=== PATIENT | male | born 1970 ===

== ENCOUNTER 2020-11-04 14:19 | Outpatient (REF) | payer OTHER, SELFPAY ==
--- NOTE | 2020-11-04 14:24 | CT_ITS ---
EXAMINATION: CT HEAD WITHOUT CONTRAST CLINICAL INFORMATION: Chronic tension headaches. COMPARISON: None TECHNIQUE: Contiguous axial imaging was performed from the skull base to vertex without intravenous administration of contrast. This CT examination was performed using dose optimization techniques as appropriate, variously including the following: *Automated exposure control *Adjustment of mA and/or kV according to patient size (this includes techniques or standardized protocols for targeted exams where dose is matched to indication/reason for exam; i.e. extremities or head) *Use of iterative reconstruction technique DLP: 912 mGy-cm FINDINGS: There is no acute intra-axial, extra-axial bleed, masses, collection midline shift. There is old infarct in the left watershed area/parieto-occipital region. There is no acute infarct in evolution. Merchant to white matter differentiation is well preserved. No extra-axial fluid collections are identified. The ventricles are normal in size. There is no abnormal attenuation within the brain parenchyma. The osseous structures and soft tissues are normal. The mastoid air cells and visualized portions of the paranasal sinuses are well aerated. CT/CT head/brain wo con IMPRESSION: No acute intracranial process seen. 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
== END 2020-11-04 14:20 | disposition home or self-care (01) ==
LOC: HO.CT 14:19
PROVIDERS: PCP Internal Medicine; Visit Provider Psychiatry & Neurology Neurology
DX: G44.229 Chronic tension-type headache, not intractable (principal)
CPT/HCPCS: 70450

== ENCOUNTER 2020-12-19 09:37 | Outpatient (REF) | payer OTHER, SELFPAY ==
--- NOTE | ~2020-12-19 | US_ITS ---
EXAMINATION: US EXTRACRANIAL CAROTID DUPLEX, BILATERAL CLINICAL INFORMATION: This is a 50 year old male with a stroke. COMPARISON: None TECHNIQUE: Real-time ultrasound and Doppler techniques (integrating B-mode 2-D vascular images, Doppler spectral analysis and color-flow Doppler imaging) were utilized to interrogate the extracranial carotid arteries, the vertebral arteries and proximal subclavian arteries bilaterally. The degree of stenosis is determined by criteria similar to NASCET. FINDINGS: Right Side: 1. There is no atherosclerotic plaque seen in the bifurcation/proximal ICA region. 2. The common carotid artery PSV proximally is 141 cm/s and distally 120 cm/s. 3. The proximal internal carotid artery velocities are 85 cm/s systolic and 21 cm/s diastolic. 4. The proximal external carotid artery PSV is 141 cm/s. 5. The vertebral artery shows antegrade flow. 6. The subclavian artery waveforms are normal. Left Side: 1. There is no atherosclerotic plaque seen in the bifurcation/proximal ICA region. 2. The common carotid artery PSV proximally is 162 cm/s and distally 110 cm/s. 3. The proximal internal carotid artery velocities are 69 cm/s systolic and 15 cm/s diastolic. 4. The proximal external carotid artery PSV is 134 cm/s. 5. The vertebral artery shows antegrade flow. 6. The subclavian artery waveforms are normal. US/US carotid duplex BI IMPRESSION: 1. RIGHT: Normal right internal carotid artery without atherosclerotic plaque or hemodynamically significant stenosis. 2. LEFT: Normal left internal carotid artery without atherosclerotic plaque or hemodynamically significant stenosis.
== END 2020-12-19 09:38 | disposition home or self-care (01) ==
LOC: HO.US 09:37
PROVIDERS: PCP Internal Medicine; Visit Provider Psychiatry & Neurology Neurology
DX: I63.9 Cerebral infarction, unspecified (principal)
CPT/HCPCS: 93880

== ENCOUNTER 2021-10-04 21:56 | Emergency (ER) | payer OTHER, SELFPAY ==
[2021-10-04 22:16] VITALS: BP 122/80; PULSE 76; RESP 18; TEMP 37.1; O2SAT 97; BMI 30.5
--- NOTE | 2021-10-05 00:28 | ED_ITS ---
History of Present Illness General Chief Complaint: Epistaxis Stated Complaint: Bloody Nose/Headache Time Seen by Provider: 10/04/21 23:51 Source: patient and hourly sign language interpreter Mode of arrival: EMS History of Present Illness HPI Narrative: 50-year-old male who is COVID-19 vaccinated presents with acute onset of epistaxis from the right nostril after having recent, several days of sinus pressure and headache and patient is noted to be on CPAP machine and endorse that he did contact his physician yesterday regarding having multiple warnings of waking up with a dry mouth. Otherwise, he denies any fevers, chills, shortness of breath, chest pain/palpitations. Patient denies any further nose bleed at this time but was concerned and called the ambulance. He denies any history either personal or family of bleeding disorders and denies any use of blood thinners at this time. Related Data Allergies Allergy/AdvReac Type Severity Reaction Status Date / Time nabumetone [From RELAFEN] Allergy Unknown UNKNOWN Verified 10/04/21 22:22 lidocaine [From LidoPatch] AdvReac Rash Verified 10/04/21 22:22 menthol [From LidoPatch] AdvReac Rash Verified 10/04/21 22:22 Review of Systems Review of Systems: Pertinent positives and negatives as stated in HPI 10 point review of systems is otherwise negative. [facility] Past Medical History Source: nursing notes reviewed Social History Social History Advance Directives: No Advance Directives Information Provided: No Physical Exam Vital Signs: Vital Signs: Last Vital Signs Temp 98.7 F 10/04/21 22:16 Pulse 76 10/04/21 22:16 Resp 18 10/04/21 22:16 BP 122/80 10/04/21 22:16 Pulse Ox 97 10/04/21 22:16 BMI result Body Mass Index 30.5 VITAL SIGNS: Reviewed. GENERAL: Well developed, well nourished, in no acute distress. HEAD: Normocephalic/atraumatic EYES: PERRLA, EOMI EARS: Ext canals without abnormality, TMs non-bulging and non-erythematous NOSE: Nares patent bilateral, evidence of bleeding from the right nostril but h emostatic at present OROPHARYNX: no oral lesions noted, posterior pharynx clear and non-erythematous without noted tonsillar enlargement/erythema/exudates NECK: Supple, no adenopathy LUNGS: Normal breath sounds. No adventitious sounds or accessory muscle use. SpO2<97> CARDIOVASCULAR: Regular rate and rhythm without noted murmurs ABDOMEN: Soft, non-tender, non-distended with bowel sounds NEUROLOGIC: Alert and oriented x 4. Strength and sensation to light touch were grossly intact x 4. Discharge Plan Discharge Clinical Impression: Epistaxis Patient Disposition: Home, Self-Care Instructions: Nosebleed (ED) Additional Instructions: 1. Llame a street m?dico ma?bogdan y analice la posibilidad de aumentar la humedad dentro de street m?quina CPAP. 2. Recomiende un aerosol de soluci?n salina de venta janelle y ?selo seg?n las instrucciones dentro de cada fosa nasal para reducir la probabilidad de que max m?s por la nariz. 3. Nikolas un seguimiento con street proveedor de atenci?n primaria en los pr?ximos 1-2 d?as para davide reevaluaci?n. Regrese a la augie de emergencias si los s?ntomas empeoran. Print Language: Ukrainian
[2021-10-05] MEDS: Acetaminophen 325 MG TABLET 975 MG PO (00:50)
== END 2021-10-05 00:52 | disposition home or self-care (01) ==
PROVIDERS: Emergency Provider Student in an Organized Health Care Education/Training Program
DX: R04.0 Epistaxis (principal)
CPT/HCPCS: 99283

== ENCOUNTER 2022-07-05 10:29 | Emergency (ER) | payer OTHER, SELFPAY ==
--- NOTE | ~2022-07-05 | XR_ITS ---
EXAMINATION: XR HAND, LEFT CLINICAL INFORMATION: Pain COMPARISON: None TECHNIQUE: PA, lateral, and oblique views of the left hand. FINDINGS: The bones and soft tissues are normal. No fracture. Alignment is anatomic. Joint spaces are maintained. No erosions or soft tissue calcifications. XR/XR hand LT 2V IMPRESSION: Normal left hand.
[2022-07-05 11:03] VITALS: BP 114/74; PULSE 72; RESP 18; TEMP 36.6; O2SAT 97; BMI 30.1
--- NOTE | 2022-07-05 11:30 | ED_ITS ---
HPI - General Adult General Chief complaint: Wound/Laceration Stated complaint: Finger Injury 07/05/22 Time Seen by Provider: 07/05/22 11:30 Source: patient Mode of arrival: ambulatory History of Present Illness HPI narrative: 51-year-old male with no significant past medical history presenting to the ED complaining of left 3rd digit crush injury S/P heavy window slamming shut on it around 23:00 last night. Reports associated tingling. Tetanus unknown. States area is throbbing. Denies injury to other area Onset (ago): hour(s) Related Data Allergies Allergy/AdvReac Type Severity Reaction Status Date / Time nabumetone [From RELAFEN] Allergy Unknown UNKNOWN Verified 10/04/21 22:22 clonidine Allergy Hives Verified 07/05/22 11:07 lidocaine [From LidoPatch] AdvReac Rash Verified 10/04/21 22:22 menthol [From LidoPatch] AdvReac Rash Verified 10/04/21 22:22 Review of Systems Review of Systems: Constitutional: No Fever, No Chills ENT/Mouth: No Ear Pain, No Nasal Congestion, No sore throat, No Rhinorrhea, No Swallowing Difficulty Cardiovascular: No Chest Pain, No SOB Respiratory: No Cough, No Sputum, No Wheezing Gastrointestinal: No Nausea, No Vomiting, No Diarrhea, No Constipation, No Abdominal pain Genitourinary: No Dysuria, No Urinary Frequency, No Hematuria Musculoskeletal: + joint pain, No Myalgias, + Joint Swelling Skin: + Skin Lesions, No rash Neuro: No Weakness, No Numbness, + Paresthesias Yes all other systems are rev iewed and are negative Constitutional: Constitutional: Reports as per HPI Neurologic: Denies Sensory deficit (Neuro) [facility] Past Medical History Attestation statement: The following information was validated with the patient. Social History Social History Advance Directives: No Advance Directives Information Provided: No Physical Exam ED Vital Signs: Vital Signs - 24 hr 07/05/22 11:03 Temperature 97.8 F Pulse Rate 72 Respiratory Rate 18 Blood Pressure 114/74 Pulse Oximetry 97 Oxygen Delivery Method Room Air BMI result Body Mass Index 30.1 Const General: cooperative, healthy appearing and no acute distress Orientation/consciousness: patient oriented x3 Limitations: no limitations HENMT Head: Yes normal to inspection and Yes atraumatic Ears: hearing grossly normal bilaterally General nose exam: Normal external nose present Face and sinus: Yes normal facial exam Eyes General: appearance normal, both eyes and all related structures EOM: EOMs intact bilaterally Neck Neck: Yes normal visual inspection and Yes no meningeal signs Resp Effort & Inspection: normal respiratory effort and no respiratory distress Cardio Rate: regular rate Heart sounds: S1 normal heart sound present and S2 normal heart sound present Peripheral pulses: radial pulses present and ulnar radial pulses present Skin Rashes: no rashes Neuro General: patient oriented x3, tone normal and no meningeal signs Gait exam (Neuro): Normal gait present Sensory Exam: No Sensory deficit (Neuro) Extrem Other: Please refer to image above of left 3rd digit. Noted subungual hematoma with small superficial laceration just proximal to cuticle. No visible nail bed, nail bed intact. +ttp to DIP. FROM and sensation intact to light touch to all digits Course Course Course Narrative: XR hand LT 2V IMPRESSION: Normal left hand. > nail trephination performed with success Results discussed with patient including worrisome signs and symptoms and strict return precautions, and when to return to the emergency department. They verbalized understanding and feel safe for discharge at this time. Procedures Nail Trephination Location (finger): left and middle Method of drainage: nail cautery Procedure successful: Yes Patient tolerated procedure: No Complications Medical Decision Making MDM Narrative Medical decision making narrative: 51-year-old male with no significant past medical history presenting to the ED complaining of left 3rd digit crush injury S/P heavy window slamming shut on it around 23:00 last night. On exam vital signs stable, NAD, nontoxic appearing, please refer to imaging above. Concern for fracture. Plan: X-rays, update tetanus, nail trephination Medical Records Medical records reviewed: Yes I reviewed the patient's medical records. Lab Data Lab results reviewed: Yes I reviewed the patient's lab results. Discharge Plan Discharge Clinical Impression: Subungual hematoma of finger, Superficial laceration, Crush injury Patient Disposition: Home, Self-Care Instructions: Subungual Hematoma (ED), Crush Injury (ED) Additional Instructions: Warm soaks to your finger will help draw the blood out from underneath your nail If pain becomes unbearable, area begins to look infected, is red, there is drainage, you have fever, or decreased range of motion return to the emergency department Los ba?os tibios en el dedo ayudar?n a sacar la max de debajo de la u?a. Si el dolor se vuelve insoportable, el ?ana comienza a verse infectada, est? daisha, hay drenaje, tiene fiebre o disminuci?n del rango de movimiento, regrese al departamento de emergencias. Referrals: Physician,Unknown J [Physician] - Print Language: [place] Islander
[2022-07-05] MEDS: Diphth,Pertus(ACell),Tet Adult 0.5 ML SYRINGE IM (12:02)
== END 2022-07-05 13:29 | disposition home or self-care (01) ==
PROVIDERS: Emergency Provider Emergency Medicine; PCP Internal Medicine
DX: S61.313A Laceration without foreign body of left middle finger with damage to nail, initial encounter (principal); S60.512A Abrasion of left hand, initial encounter; M79.642 Pain in left hand; Y29.XXXA Contact with blunt object, undetermined intent, initial encounter; Y93.9 Activity, unspecified; Y92.9 Unspecified place or not applicable; Y99.9 Unspecified external cause status; Z79.899 Other long term (current) drug therapy
CPT/HCPCS: 11750; 73120; 90471; 90715; 99282; 99284

== ENCOUNTER 2023-02-17 11:03 | Emergency (ER) | payer OTHER, SELFPAY ==
--- NOTE | ~2023-02-17 | XR_ITS ---
EXAMINATION: XR CHEST CLINICAL INFORMATION: Productive cough, shortness of breath COMPARISON: None available. TECHNIQUE: Frontal view of the chest was obtained. FINDINGS: No significant abnormality is noted involving the heart, lungs, mediastinum, bony thorax or soft tissues. CTA chest on 04/30/2017. Partially visualized spinal stimulator. XR/XR chest 1V IMPRESSION: No acute disease.
--- NOTE | 2023-02-17 11:05 | ED.URI ---
HPI - URI/Sore Throat General Chief Complaint: Upper Respiratory Symptoms Stated Complaint: congested Time Seen by Provider: 02/17/23 11:47 Source: patient, RN notes reviewed and old records reviewed Mode of arrival: ambulatory History of Present Illness HPI Narrative: 52-year-old male with no significant past medical history presenting to the ED complaining of productive cough, nasal congestion, rhinorrhea, sinus pressure, mild SOB, and blocked ears x 2 weeks. Denies reported fever/chills, CP, abdominal pain, recent travel, sick contacts MD elicited complaint: cough, rhinorrhea and nasal congestion Onset (ago): week(s) Related Data Previous Rx's Medication Instructions Recorded amoxicillin 875 mg tablet 875 mg PO BID 7 days #14 tabs 02/17/23 fluticasone propionate 50 2 spray intranasal DAILY #16 grams 02/17/23 mcg/actuation nasal spray,suspension (Flonase Allergy Relief) prednisone 20 mg tablet 40 mg PO DAILY 5 days #10 tabs 02/17/23 Allergies Allergy/AdvReac Type Severity Reaction Status Date / Time nabumetone [From RELAFEN] Allergy Unknown UNKNOWN Verified 02/17/23 11:08 clonidine Allergy Hives Verified 02/17/23 11:08 lidocaine [From LidoPatch] AdvReac Rash Verified 02/17/23 11:08 menthol [From LidoPatch] AdvReac Rash Verified 02/17/23 11:08 Review of Systems Review of Systems: Constitutional: No Fever, No Chills ENT/Mouth: + Ear Pain, +Nasal Congestion, + Sinus Pain, No Hoarseness, No sore throat, +Rhinorrhea, No Swallowing Difficulty Cardiovascular: No Chest Pain, + SOB Respiratory: +cough, + Sputum, No Wheezing Gastrointestinal: No Nausea, No Vomiting, No Diarrhea, No Constipation, No Abdominal pain Musculoskeletal: No joint pain, No Myalgias, No Joint Swelling Skin: No Skin Lesions, No rash Neuro: No Weakness Yes all other systems are reviewed and are negative Constitutional: Constitutional: Reports as per [facility] Past Medical History Attestation statement: The following information was validated with the patient. Source: old records reviewed Social History Social History Advance Directives: No Advance Directives Information Provided: Yes Physical Exam Vital Signs: Vital Signs: Last Vital Signs Temp 98 F 02/17/23 11:08 Pulse 88 02/17/23 11:08 Resp 19 02/17/23 11:08 BP 110/78 02/17/23 11:08 Pulse Ox 99 02/17/23 11:08 O2 Del Method Room Air 02/17/23 11:08 BMI result Body Mass Index 31.1 Const: General: cooperative, healthy appearing, no acute distress, alert and awake Orientation/consciousness: patient oriented x3 Limitations: no limitations HEENT: Head: Yes normal to inspection and Yes atraumatic Ears: hearing grossly normal bilaterally, external ears normal and TM abnormal with fluid behind the TM on the right; not bulging, not dull and not erythematous General nose exam: Normal external nose present and Nasal discharge present Face and sinus: Yes normal facial exam Mouth: Normal oral and palatal mucosa present Throat: Yes posterior oropharynx normal, Yes tonsils normal, Yes uvula midline, No peritonsillar mass, No uvula laterally displaced and No uvular edema Eyes: General: appearance normal, both eyes and all related structures EOM: EOMs intact bilaterally Neck: Neck: Yes normal visual inspection and Yes no meningeal signs Resp: Effort & Inspection: normal respiratory effort and no respiratory distress Auscultation: clear to auscultation bilaterally, no rhonchi and no wheezes Cardio: Rate: regular rate Heart sounds: S1 normal heart sound present and S2 normal heart sound present Skin: Rashes: no rashes Wounds: no wounds Neuro: General: patient oriented x3, tone normal and no meningeal signs Gait exam (Neuro): Normal gait present Extrem: General: Yes normal to inspection Course Course Course Narrative: RME: 52 yo M w/no sig PMHx c/o productive cough, nasal congestion, blocked ears, and mild SOB x2 weeks. Denies CP afebrile, nontoxic COVID/FLU, CXR ordered Full HPI, ROS and PE to be performed by primary ED provider. -COVID and influenza negative XR chest 1V IMPRESSION: No acute disease. Will discharge patient with course of amoxicillin for sinusitis and prednisone for bronchitis Results discussed with patient including worrisome signs and symptoms and strict return precautions, and when to return to the emergency department. They verbalized understanding and feel safe for discharge at this time. Medical Decision Making Medical Decision Making MDM Narrative: 52-year-old male with no significant past medical history presenting to the ED complaining of productive cough, nasal congestion, rhinorrhea, sinus pressure, mild SOB, and blocked ears x 2 weeks. On exam vital signs stable, NAD, nontoxic appearing, right ear with fluid behind TM, no appreciable erythema/bulging, oropharynx WNL, + nasal congestion noted. Lungs CTA. Concern for sinusitis vs viral syndrome vs bronchitis. Lower suspicion for pneumonia, acute otitis media/externa or [employer] Plan: COVID/flu testing, CXR Please refer to course for remaining clinical decision making, interpretation of labs/imaging results, and discussions with consultants and/or family members. Differential Diagnosis Differential Diagnoses: The differential diagnosis associated with the presentation includes As above Lab Data MDM Lab Attestation statement: I reviewed the patient's lab results. Labs: Lab Results 02/17/23 02/17/23 Range/Units 11:25 11:25 COVID-19 (JAYY) Negative (Negative) COVID-19 Clin Com See Note Influenza Type A (SUSAN) Negative (Negative) Influenza Type B (SUSAN) Negative (Negative) Influenza A & B Note See Note Independent Interpretation I performed an independent interpretation of an: Plain X-Ray Radiology Impression Discussion of test interpretation with radiology: I have reviewed the radiologist's reading. External Record Review External record reviewed: Inpatient record, Office record, Outpatient record, Prior outpatient labs, Prior outpatient radiology, Primary care record and Outside ED record Tests considered The following testing was considered but not selected: As above Discharge Plan Discharge Clinical Impression: Sinusitis, Bronchitis Patient Disposition: Home, Self-Care Instructions: Sinusitis (ED), Acute Bronchitis (ED) Additional Instructions: You tested negative for COVID and flu. your x-ray is unremarkable We are treating you for sinusitis and bronchitis Amoxicillin is an antibiotic please take as prescribed In addition take prednisone which is a steroid Continue using Flonase Follow-up with her doctor If symptoms persist or worsen return to the ED Sergei negativo para COVID y gripe. street radiograf?a no tiene nada especial Te estamos tratando de sinusitis y bronquitis La amoxicilina es un antibi?nieves, t?martin seg?n lo prescrito. Adem?s tome prednisona que es un esteroide Contin?e usando Flonase Seguimiento con street m?dico Si los s?ntomas persisten o empeoran, regrese al servicio de urgencias. Prescriptions: New amoxicillin 875 mg tablet 875 mg PO BID 7 Days Qty: 14 0RF prednisone 20 mg tablet 40 mg PO DAILY 5 Days Qty: 10 0RF fluticasone propionate [Flonase Allergy Relief] 50 mcg/actuation spray,suspension 2 spray intranasal DAILY Qty: 16 0RF Rx Instructions: administer into each nostril Referrals: Cody Yo III, MD [Primary Care Provider] - Interventions: ED Discharge Assessment Last Done: 02/17/23 13:37 Discharge Date/Time: 02/17/23 13:38 Print Language: Maldivian
[2023-02-17 11:08] VITALS: BP 110/78; PULSE 88; RESP 19; TEMP 36.6; O2SAT 99; BMI 31.1
[2023-02-17 11:52] LABS: COVID-19 Test Negative (Negative); IDNOW Serial# 08D9AD1C; IDNOW Serial# BCCEAD1C; Influenza A Negative (Negative); Influenza B2 Negative (Negative)
== END 2023-02-17 13:38 | disposition home or self-care (01) ==
PROVIDERS: Physician Assistant; Emergency Provider Emergency Medicine; PCP Internal Medicine
DX: J32.9 Chronic sinusitis, unspecified (principal); J40 Bronchitis, not specified as acute or chronic; Z20.822 Contact with and (suspected) exposure to COVID-19; Z20.828 Contact with and (suspected) exposure to other viral communicable diseases
CPT/HCPCS: 71045; 87502; 87635; 99283

== ENCOUNTER 2023-05-01 16:20 | Emergency (ER) | payer OTHER, SELFPAY ==
--- NOTE | ~2023-05-01 | XR_ITS ---
EXAMINATION: XR KNEE, RIGHT CLINICAL INFORMATION: Foreign body in the knee. COMPARISON: None available. TECHNIQUE: Four views of the right knee. FINDINGS: No acute fractures or subluxation. Mild tricompartmental degenerative osteoarthritis. No erosions or chondrocalcinosis. Small joint effusion. There is a metallic foreign body projecting over the soft tissues of the medial and anterior compartment of the knee, resembling a fishhook. XR/XR knee RT 3V IMPRESSION: 1. No acute fractures or subluxation. 2. Metallic foreign body in the soft tissues of the knee. 3. Small joint effusion. 4. Mild tricompartmental degenerative osteoarthritis.
[2023-05-01 16:53] VITALS: BP 140/107; PULSE 90; RESP 18; TEMP 36.3; O2SAT 99; BMI 30.4
--- NOTE | 2023-05-01 17:19 | ED_ITS ---
HPI - General Adult General Chief complaint: General Medical Stated complaint: fishing hook in R knee Time Seen by Provider: 05/01/23 17:19 Source: patient and configurator Mode of arrival: ambulatory Limitations: no limitations History of Present Illness HPI narrative: 52-year-old male presents to the ER for evaluation after he got a fishhook stuck in his right knee about 2 hours ago. He states it was a fishhook that had 3 hooks at the end but he was able to cut off 2 of the other hooks. One of the hooks remains imbedded into the soft tissue of his right knee. He was unable to get it out on his own. He states his last tetanus shot was this year. He denies any other injuries. He is ambulatory. MD complaint: [place] imbedded into the right knee Onset (ago): hour(s) Location: right and lower extremity Radiation: non-radiation Severity: moderate Quality: aching Pain Consistency: constant Relieving factors: rest Exacerbating factors: movement Associated symptoms: denies other symptoms Treatments prior to arrival: none Related Data Previous Rx's Medication Instructions Recorded amoxicillin 875 mg tablet 875 mg PO BID 7 days #14 tabs 02/17/23 fluticasone propionate 50 2 spray intranasal DAILY #16 grams 02/17/23 mcg/actuation nasal spray,suspension (Flonase Allergy Relief) prednisone 20 mg tablet 40 mg PO DAILY 5 days #10 tabs 02/17/23 levofloxacin 500 mg tablet 500 mg PO DAILY 5 days #5 tabs 05/01/23 Allergies Allergy/AdvReac Type Severity Reaction Status Date / Time nabumetone [From RELAFEN] Allergy Unknown UNKNOWN Verified 05/01/23 16:52 clonidine Allergy Hives Verified 05/01/23 16:52 lidocaine [From LidoPatch] AdvReac Rash Verified 05/01/23 16:52 menthol [From LidoPatch] AdvReac Rash Verified 05/01/23 16:52 Review of Systems Review of Systems: Yes all other systems are reviewed and are negative [facility] Social History Social History Advance Directives: No Advance Directives Information Provided: Yes Physical Exam ED Vital Signs: Vital Signs - 24 hr 05/01/23 16:53 Temperature 97.3 F Pulse Rate 90 Respiratory Rate 18 Blood Pressure 140/107 H Pulse Oximetry 99 Oxygen Delivery Method Room Air BMI result Body Mass Index 30.4 Appearance: Alert. Oriented X3. No acute distress. HEENT: normal inspection CVS: Normal heart rate and rhythm. Pulses normal. Respiratory: No respiratory distress. Skin: Skin warm and dry. Normal skin color. Normal skin turgor. No rashes. Extremities: right medial knee with a metal fish hoot protruding, approx 1 cm is embedded, no surrounding erythema or drainage Neuro: Oriented X 3. No motor deficit. No sensory deficit. Medications Administered Discontinued Medications Generic Name Dose Route Start Last Admin Trade Name Freq PRN Reason Stop Dose Admin Lidocaine HCl 2 ml 05/01/23 16:57 05/01/23 17:33 Lidocaine Hcl 1 % 20 Ml Vial INFILTRATI 05/01/23 16:58 2 ml ONCE ONE Administration Procedures Foreign Body Removal Time Out Performed: yes Site: right and lower extremity Description of foreign body: fish hook Sedation/Analgesia: other (lidocaine 2% 2cc) Technique: manual removal, removal with forceps, incision made to facilitate removal and irrigation Confirmed by:: direct visualization and radiograph Complications: bleeding Post-procedure exam: awake, alert Neurovascular: normal distal pulse, normal capillary fill, distal light touch sensation intact, distal motor function normal and no signs of compartment syndrome Medical Decision Making Medical Decision Making MDM Narrative: 52-year-old male presents to the ER for evaluation of a fishhook imbedded in his right knee for the last couple of hours. Unable to manually remove at home. XR showing superficial hook Area was cleansed w/ betadine, removal successful after lidocaine. irrigated w/ saline. will treat with ppx abx. wound care discussed as well as return precautions Differential Diagnosis Differential Diagnoses: The differential diagnosis associated with the presentation includes soft tissue foreign body, bony involvement of foreign body, cellulitis, puncture wound Independent Interpretation I performed an independent interpretation of an: Plain X-Ray Interpretation: superficial fish hook visualized, no bony involvement Radiology Impression Discussion of test interpretation with radiology: I have reviewed the radiologist's reading. Radiologist Impression: ?XR/XR knee RT 3V IMPRESSION: 1.? No acute fractures or subluxation. 2.? Metallic foreign body in the soft tissues of the knee. 3.? Small joint effusion. 4.? Mild tricompartmental degenerative osteoarthritis. External Record Review External record reviewed: Prior outpatient labs Prescription Management I considered prescription management with: Pain Medication and Antibiotic Critical Care Time Critical Care Time Critical Care Time: No Discharge Plan Discharge Clinical Impression: Fish hook in knee Patient Disposition: Home, Self-Care Instructions: Soft Tissue Foreign Body (ED) Additional Instructions: use bacitracin/neosporin to the area 2x times per day Take the prescribed antibiotics as directed, complete the entire course and do not miss any doses keep clean and covered use ice for pain take motrin and tylenol for pain monitor for signs of infection including redness, warmth, drainage, swelling, red streaking use bacitracina/neosporina en el ?ana 2 veces al d?a [place] los antibi?ticos prescritos seg?n las indicaciones, complete todo el ciclo y no omita ninguna dosis. mantener limpio y cubierto usa hielo para el dolor tome motrin y tylenol para el dolor controle los signos de infecci?n, nolan enrojecimiento, calor, drenaje, hinchaz?n, vetas thao Prescriptions: New levofloxacin 500 mg tablet 500 mg PO DAILY 5 Days Qty: 5 0RF No Action amoxicillin 875 mg tablet 875 mg PO BID 7 Days Qty: 14 0RF prednisone 20 mg tablet 40 mg PO DAILY 5 Days Qty: 10 0RF fluticasone propionate [Flonase Allergy Relief] 50 mcg/actuation spray,street spension 2 spray intranasal DAILY Qty: 16 0RF Rx Instructions: administer into each nostril Interventions: ED Discharge Assessment Last Done: 05/01/23 17:57 Discharge Date/Time: 05/01/23 17:57
[2023-05-01] MEDS: Lidocaine HCl 1 % 20 ML VIAL INFILTRATI (17:33)
== END 2023-05-01 17:57 | disposition home or self-care (01) ==
PROVIDERS: Emergency Provider Internal Medicine; PCP Internal Medicine
DX: S81.041A Puncture wound with foreign body, right knee, initial encounter (principal); W45.8XXA Other foreign body or object entering through skin, initial encounter; Y93.19 Activity, other involving water and watercraft; Y92.89 Other specified places as the place of occurrence of the external cause; Y99.9 Unspecified external cause status
CPT/HCPCS: 10120; 73562; 99282; 99284

== ENCOUNTER 2023-06-20 18:40 | Emergency (ER) | payer OTHER, SELFPAY ==
--- NOTE | ~2023-06-20 | XR_ITS ---
EXAMINATION: XR CHEST 2 VIEWS CLINICAL INFORMATION: Cough. COMPARISON: Chest radiographs dated 02/17/2023. TECHNIQUE: Frontal and lateral views of the chest were obtained. FINDINGS: The heart, great vessels, pulmonary vasculature and mediastinum are normal. The lungs show no focal infiltrate, effusion or pneumothorax. There is no acute osseous abnormality. A spinal stimulator device is noted. XR/XR chest 2V IMPRESSION: No active cardiopulmonary disease.
[2023-06-20 19:05] VITALS: BP 140/80; PULSE 76; RESP 18; TEMP 37.1; O2SAT 97; BMI 31.0
--- NOTE | 2023-06-20 19:05 | ED_ITS ---
HPI - URI/Sore Throat General Chief Complaint: Fever Stated Complaint: sore throat, left eye pain, covid + Time Seen by Provider: 06/20/23 22:38 Source: patient and RN notes reviewed Mode of arrival: ambulatory Limitations: no limitations History of Present Illness HPI Narrative: This is a 52-year-old male, with no known past medical history, presenting to the emergency department for evaluation of cough x4 days. Patient reports that he took a COVID test today and it was positive. Patient denies any fevers, chills, shortness of breath, nasal congestion, runny nose, headaches, dizziness, abdominal pain, nausea, vomiting, or diarrhea. He denies taking any medications at home to treat his current symptoms. Patient reports chest pain and triage however he denies having chest pain just a cough. No other complaints or concerns at this time. MD elicited complaint: cough Related Data Previous Rx's Medication Instructions Recorded amoxicillin 875 mg tablet 875 mg PO BID 7 days #14 tabs 02/17/23 fluticasone propionate 50 2 spray intranasal DAILY #16 grams 02/17/23 mcg/actuation nasal spray,suspension (Flonase Allergy Relief) prednisone 20 mg tablet 40 mg (2 x 20 mg) PO DAILY 5 days 02/17/23 #10 tabs levofloxacin 500 mg tablet 500 mg PO DAILY 5 days #5 tabs 05/01/23 benzonatate 200 mg capsule 200 mg PO BID PRN cough #14 caps 06/21/23 ibuprofen 600 mg tablet 600 mg PO Q6H PRN pain #30 tabs 06/21/23 Allergies Allergy/AdvReac Type Severity Reaction Status Date / Time nabumetone [From RELAFEN] Allergy Unknown UNKNOWN Verified 05/01/23 16:52 clonidine Allergy Hives Verified 05/01/23 16:52 lidocaine [From LidoPatch] AdvReac Rash Verified 05/01/23 16:52 menthol [From LidoPatch] AdvReac Rash Verified 05/01/23 16:52 Review of Systems 2 Review of Systems: Yes all other systems are reviewed and are negative Constitutional: Constitutional: Reports as per HPI [facility] Past Medical History Attestation statement: The following information was validated with the patient. Social History Social History Advance Directives: No Advance Directives Information Provided: No Physical Exam 2 Vital Signs: Vital Signs: Last Vital Signs Temp 98.8 F 06/20/23 19:05 Pulse 76 06/20/23 19:05 Resp 18 06/20/23 19:05 BP 140/80 H 06/20/23 19:05 Pulse Ox 97 06/20/23 19:05 O2 Del Method Room Air 06/20/23 19:05 BMI result Body Mass Index 31.0 Const: General: cooperative, comfortable and no acute distress O rientation/consciousness: patient oriented x3 Limitations: no limitations HEENT: Other: Oropharynx is mildly erythematous, no tonsillar hypertrophy or exudates. Uvula midline Head: Yes normal to inspection, Yes normocephalic and Yes atraumatic E ars: hearing grossly normal bilaterally and TM's normal bilaterally General nose exam: Normal external nose present Face and sinus: Yes normal facial exam Mouth: Normal oral and palatal mucosa present, oropharynx normal and moist mucous membranes Throat: Yes posterior oropharynx normal Eyes: General: appearance normal, both eyes and all related structures E yelids: Yes eyelids normal Conjunctivae: conjunctivae normal Sclerae: s clerae normal Pupils: Equal, round and reactive pupils present EOM: EOMs intact bilaterally Neck: Neck: Yes normal visual inspection, Yes full ROM and Yes no lymphadenopathy Lymphatic: no lymphadenopathy noted Chest: Chest palpation & inspection: normal inspection of the chest Resp: Effort & Inspection: normal respiratory effort and able to speak in complete sentences Auscultation: clear to auscultation bilaterally, no crackles, no rales, no rhonchi and no wheezes Cardio: Rate: regular rate Rhythm: regular rhythm Heart sounds: S1 normal heart sound present and S2 normal heart sound present GI: Inspection: Yes normal to inspection Skin: General skin exam: no rashes or lesions noted Trauma: no lacerations or abrasions Wounds: no wounds Neuro: General: patient oriented x3 and moves all extremities Cranial nerves: Yes Equal, round and reactive pupils present Extrem: General: Yes normal to inspection Right upper extremity: normal to inspection Left upper extremity: normal to inspection Right lower extremity: normal to inspection Left lower extremity: normal to inspection Course Course Course Narrative: This is a rapid medical exam. deferred additional HPI, ROS, PE to primary provider. 52yo male with past medical history of HTN here with complaints of chest pain which began today, constant in nature. Also c/o sore throat, cough. COVID + at home today on home test. Traveled [place] recently. Will obtain labs, CXR, EKG, COVID screen VSS Medical Decision Making Medical Decision Making [facility] Narrative: 52-year-old male presenting to the emergency department for evaluation of cough which started today. On arrival, mildly hypertensive at 140/80, he is asymptomatic. On examination, lungs clear auscultation bilaterally, oropharynx is non erythematous, no tonsillar hypertrophy or exudates. Labs were obtained, no leukocytosis, chemistry nondiagnostic. Patient tested positive for COVID. Chest x-ray shows no pneumonia. Patient reported in triage that he was having chest pain, does not have chest pain and did not have chest pain, troponin was ordered and was negative. No repeat indicated. Will treat symptomatically with Tylenol, ibuprofen, and Tessalon. Discussed return precautions with patient. Patient understands and agrees with plan. Patient stable for discharge. Differential Diagnosis Differential Diagnoses: The differential diagnosis associated with the presentation includes COVID, upper respiratory infection, sinusitis, bronchitis Lab Data [facility] Lab Attestation statement: I reviewed the patient's lab results. COVID positive, see above for further details 06/20/23 19:50 06/20/23 19:50 Labs: Lab Results 06/20/23 06/20/23 Range/Units 19:50 19:51 WBC 3.1 L (4.8-10.8) X10*3/uL RBC 4.86 (4.60-5.80) X10*6/uL Hgb 14.1 (14.0-18.0) g/dl Hct 41.4 L (42.0-52.0) % MCV 85.2 (80.0-98.0) fL MCH 29.0 (27.0-33.0) pg MCHC 34.1 (31.0-36.0) g/dl RDW 13.5 (11.0-16.0) % Plt Count 92 L (160-400) X10*3/uL MPV 9.9 (9.4-12.4) fL Immature Gran % (Auto) 0.3 (0.0-0.4) % Neut % (Auto) 61.8 (45-73) % Lymph % (Auto) 22.4 (20-40) % [place] % (Auto) 12.3 H (2-11) % Eos % (Auto) 3.2 (0-4) % Baso % (Auto) 0.0 (0-2) % Lymph # (Auto) 0.7 L (1.2-4.9) X10*3/uL [place] # (Auto) 0.4 (0.1-1.2) X10*3/uL Eos # (Auto) 0.1 (0.0-0.4) X10*3/uL Baso # (Auto) 0.0 (0.0-0.2) X10*3/uL Abs Immat Gran (auto) 0.01 (0.00-0.03) X10*3/uL Absolute Neuts (auto) 1.9 L (2.0-8.3) x10*3/uL Absolute Nucleated RBC 0.000 (0.0-0.012) X10*3/uL Nucleated RBC % (auto) 0.0 (0.0-0.2) /100WBC Smear Tech's Comments VERIFIED PT 10.9 L (11.1-13.3) SEC INR 0.9 (0.9-1.1) Sodium 144 (135-145) mmol/L Potassium 4.3 (3.3-5.1) mmol/L Chloride 106 (96-108) mmol/L Carbon Dioxide 29 (22-29) mmol/L Anion Gap 13 (12-20) BUN 14 (9-16) mg/dL Creatinine 0.88 (0.5-1.4) mg/dL Estim Creat Clear Calc 121.3 Estimated GFR > 60 Random Glucose 90 (60-115) mg/dL Calcium 8.9 (8.4-10.2) mg/dL Magnesium 2.1 (1.6-2.6) mg/dL Total Bilirubin 0.3 (0.0-1.0) mg/dL Direct Bilirubin 0.1 (0.0-0.5) mg/dL AST 33 (5-37) U/L ALT 37 (0-40) U/L Alkaline Phosphatase 66 (39-117) U/L Troponin I High Sens < 2.7 (<3.5-35.0) ng/L Total Protein 6.4 L (6.5-8.0) g/dL Albumin 4.5 (3.5-5.0) g/dL COVID-19 (JAYY) Positive A (Negative) COVID-19 Clin Com See Note Radiology Impression Discussion of test interpretation with radiology: I have reviewed the radiologist's reading. Radiologist Impression: EXAMINATION: XR CHEST 2 VIEWS CLINICAL INFORMATION: Cough. COMPARISON: Chest radiographs dated 02/17/2023. TECHNIQUE: Frontal and lateral views of the chest were obtained. FINDINGS: The heart, great vessels, pulmonary vasculature and mediastinum are normal. The lungs show no focal infiltrate, effusion or pneumothorax. There is no acute osseous abnormality. A spinal stimulator device is noted. XR/XR chest 2V IMPRESSION: No active cardiopulmonary disease. Dictated By: Mehul Hayes MD Discharge Plan Discharge Clinical Impression: COVID-19 Patient Disposition: Home, Self-Care Additional Instructions: You tested positive for COVID today. Your blood work was reassuring. Your chest x-ray did not show any pneumonia. Please take ibuprofen and Tylenol as directed as needed for pain and symptoms. I am also giving a medication to help with cough. Drink plenty of fluids get plenty of rest. Follow the CDC guidelines regarding quarantine precautions. If any new or worsening symptoms occur including but not limited to chest pain, shortness of breath, please return for re-evaluation.' Sergei positivo por COVID hoy. Tu an?lisis de max fue tranquilizador. Arias radiograf?a de t?rax no mostr? ninguna neumon?a. [place] ibuprofeno y Tylenol seg?n las indicaciones seg?n sea necesario para el dolor y los s?ntomas. Tambi?n le estoy dando un medicamento para ayudar con la tos. Laura muchos l?quidos y descanse mucho. Siga las pautas de los CDC con respecto a las precauciones de cuarentena. Si se presenta alg?n s?ntoma nuevo o que empeora, incluidos, entre otros, dolor en el pecho y dificultad para respirar, regrese para davide nueva evaluaci?n. Prescriptions: New ibuprofen 600 mg tablet 600 mg PO Q6H PRN (Reason: pain) Qty: 30 0RF benzonatate 200 mg capsule 200 mg PO BID PRN (Reason: cough) Qty: 14 0RF No Action amoxicillin 875 mg tablet 875 mg PO BID 7 Days Qty: 14 0RF prednisone 20 mg tablet 40 mg PO DAILY 5 Days Qty: 10 0RF fluticasone propionate [Flonase Allergy Relief] 50 mcg/actuation spray,suspension 2 spray intranasal DAILY Qty: 16 0RF Rx Instructions: administer into each nostril levofloxacin 500 mg tablet 500 mg PO DAILY 5 Days Qty: 5 0RF Interventions: ED Discharge Assessment Last Done: 06/21/23 00:11 Discharge Date/Time: 06/21/23 00:14 Print Language: Indonesian
--- NOTE | 2023-06-20 19:08 | ECG_ITS ---
Test Reason : chest pain Blood Pressure : / mmHG Vent. Rate : 073 BPM Atrial Rate : 073 BPM P-R Int : 150 ms QRS Dur : 102 ms QT Int : 378 ms P-R-T Axes : 049 -31 013 degrees QTc Int : 416 ms Normal sinus rhythm Left axis deviation Abnormal ECG When compared with ECG of 11-AUG-2017 07:09, QRS axis Shifted left Referred By: Pily Heredia Electronically Signed By:SPENCER AMADOR
[2023-06-20 20:08] LABS: Eosinophils Absolute Auto 0.1 X10*3/uL (0.0-0.4); Eosinophils Percent Auto 3.2 % (0-4); Hematocrit 41.4 % (42.0-52.0); Hemoglobin 14.1 g/dl (14.0-18.0); Imm Gran Abs Auto 0.01 X10*3/uL (0.00-0.03); Imm Gran Pct Auto 0.3 % (0.0-0.4); Lymphocytes Absolute Auto 0.7 X10*3/uL (1.2-4.9); Lymphocytes Percent Auto 22.4 % (20-40); Mean Corpuscular HGB Conc 34.1 g/dl (31.0-36.0); Mean Corpuscular Volume 85.2 fL (80.0-98.0); Mean Platelet Volume 9.9 fL (9.4-12.4); Monocytes Absolute Auto 0.4 X10*3/uL (0.1-1.2); Monocytes Percent Auto 12.3 % (2-11); Neutrophils Absolute Auto 1.9 x10*3/uL (2.0-8.3); Neutrophils Percent Auto 61.8 % (45-73); Red Blood Count 4.86 X10*6/uL (4.60-5.80); Red Cell Distribution Width 13.5 % (11.0-16.0); White Blood Count 3.1 X10*3/uL (4.8-10.8)
[2023-06-20 20:12] LABS: MANUAL DIFF FLAG SCAN
[2023-06-20 20:12] LABS: COVID-19 Test Positive (Negative); IDNOW Serial# BCCEAD1C
[2023-06-20 20:26] LABS: Alanine Aminotransferase 37 U/L (0-40); Albumin Level 4.5 g/dL (3.5-5.0); Alkaline Phosphatase 66 U/L (39-117); Anion Gap 13 (12-20); Aspartate Amino Transferase 33 U/L (5-37); Bilirubin Direct 0.1 mg/dL (0.0-0.5); Bilirubin Total 0.3 mg/dL (0.0-1.0); Blood Urea Nitrogen 14 mg/dL (9-16); Calcium 8.9 mg/dL (8.4-10.2); Carbon Dioxide 29 mmol/L (22-29); Chloride 106 mmol/L (96-108); Creatinine Clr Calc Pharmacy 121.3; Estimated Glomerular Filt Rate > 60; Glucose Random 90 mg/dL (60-115); Magnesium 2.1 mg/dL (1.6-2.6); Potassium 4.3 mmol/L (3.3-5.1); Sodium 144 mmol/L (135-145); Total Protein 6.4 g/dL (6.5-8.0)
[2023-06-20 20:30] LABS: INTERNATIONAL NORM RATIO 0.9 (0.9-1.1); Prothrombin Time 10.9 SEC (11.1-13.3)
[2023-06-20 20:54] LABS: Platelet Count 92 X10*3/uL (160-400); SLIDE REVIEW VERIFIED
[2023-06-20 22:05] LABS: Troponin-I High Sensitivity < 2.7 ng/L (<3.5-35.0)
== END 2023-06-21 00:14 | disposition home or self-care (01) ==
PROVIDERS: Nurse Practitioner Family; Emergency Provider Internal Medicine; PCP Internal Medicine
DX: U07.1 COVID-19 (principal); J02.8 Acute pharyngitis due to other specified organisms; B34.9 Viral infection, unspecified; R07.89 Other chest pain; R50.9 Fever, unspecified; Z79.899 Other long term (current) drug therapy
CPT/HCPCS: 71046; 80048; 80076; 83735; 84484; 85025; 85610; 87635; 93005; 99283

== ENCOUNTER 2023-11-07 08:24 | Outpatient (REF) | payer OTHER, SELFPAY ==
--- NOTE | 2023-11-07 08:29 | EMG_ITS ---
Right tibial and peroneal motor studies were performed. Right superficial peroneal and sural sensory studies were performed. Tibial H-reflex was obtained and paraspinal muscles were tested with some limb muscles. IMPRESSION: Mild sensory motor axonal peripheral neuropathy. MD MEGHA Suarez/CHELE / [phone]
== END 2023-11-07 08:25 | disposition home or self-care (01) ==
LOC: HO.NEURO 08:24
PROVIDERS: PCP Internal Medicine; Visit Provider Orthopaedic Surgery Orthopaedic Trauma
DX: M25.561 Pain in right knee (principal); M51.16 Intervertebral disc disorders with radiculopathy, lumbar region
CPT/HCPCS: 95886; 95909

== ENCOUNTER 2024-02-14 16:08 | Emergency (ER) | payer OTHER, SELFPAY ==
--- NOTE | ~2024-02-14 | CT_ITS ---
EXAMINATION: CT HEAD WITHOUT CONTRAST CLINICAL INFORMATION: Left side facial droop. Headache. Hypertension. COMPARISON: CT head dated 11/04/2020. TECHNIQUE: Contiguous axial imaging was performed from the skull base to vertex without intravenous administration of contrast. This CT examination was performed using dose optimization techniques as appropriate, variously including the following: *Automated exposure control *Adjustment of mA and/or kV according to patient size (this includes techniques or standardized protocols for targeted exams where dose is matched to indication/reason for exam; i.e. extremities or head) *Use of iterative reconstruction technique DLP: 739 mGy-cm FINDINGS: There is no acute intracranial hemorrhage. There is no evidence of acute/subacute cerebral or cerebellar infarction. There is a chronic area of encephalomalacia within the left parieto-occipital region. There is no midline shift or mass effect. There is no extra-axial fluid collection. Ventricular size is normal. The orbits are symmetric and within normal limits. There is trace mucosal thickening within the right maxillary sinus. Remaining visualized paranasal sinuses are well aerated. Mastoid air cells are clear. CT/CT head/brain wo IV con IMPRESSION: No acute intracranial pathology. There is a chronic infarct within the left parieto-occipital region.
--- NOTE | 2024-02-14 16:18 | ECG_ITS ---
Test Reason : JAW PAIN Blood Pressure : / mmHG Vent. Rate : 053 BPM Atrial Rate : 053 BPM P-R Int : 150 ms QRS Dur : 110 ms QT Int : 436 ms P-R-T Axes : 041 -15 022 degrees QTc Int : 409 ms Sinus bradycardia Incomplete right bundle branch block Borderline ECG When compared with ECG of 20-JUN-2023 19:40, Incomplete right bundle branch block is now Present Referred By: Ellie Rey Electronically Signed By:VIRIDIANA GILLIAM
--- NOTE | 2024-02-14 16:18 | ED.GENADULT ---
HPI - General Adult General Chief complaint: General Medical Stated complaint: face pain, hotness since 1300,nausea,hx stroke Time Seen by Provider: 02/14/24 16:14 Source: patient, EMS and translator interpreter (all interactions with this patient were facilitated by an [facility] [place] [facility] [employer]) Mode of arrival: EMS Limitations: language barrier (all interactions with this patient were facilitated by an [facility] [place] [facility] [employer]) History of Present Illness HPI narrative: Patient is a 53 year old assigned male at with a history of CVA, HTN, and shingles presenting to the emergency department today with left sided facial hotness. Patient states that earlier today he began to have left sided facial warmth, and nausea. Patient states that all of those symptoms have now resolved. Patient states that he was seen for an MRI yesterday and was found to have a possible gliosis in his left parietal lobe and a previous infarct of the left occipital lobe. Patient denies any dizziness, lightheadedness, abdominal pain, nausea, vomiting, fever, chills, blurry vision, double vision, loss of vision, chest pain, difficulty breathing, shortness of breath, back pain, night sweats, pain with urination, increased urinary frequency, increased urinary urgency, blood in his urine or stool, syncope or a near syncopal episode, recent trauma or falls, bowel incontinence, bladder incontinence, bowel retention, bladder retention, or any other complaints at this time. Relieving factors: none Exacerbating factors: none Associated symptoms: denies other symptoms Treatments prior to arrival: none Related Data Previous Rx's ?Medication ?Instructions ?Recorded amoxicillin 875 mg tablet 875 mg PO BID 7 days #14 tabs 02/17/23 fluticasone propionate 50 2 spray intranasal DAILY #16 grams 02/17/23 mcg/actuation nasal spray,suspension (Flonase Allergy Relief) prednisone 20 mg tablet 40 mg (2 x 20 mg) PO DAILY 5 days 02/17/23 #10 tabs levofloxacin 500 mg tablet 500 mg PO DAILY 5 days #5 tabs 05/01/23 benzonatate 200 mg capsule 200 mg PO BID PRN cough #14 caps 06/21/23 ibuprofen 600 mg tablet 600 mg PO Q6H PRN pain #30 tabs 06/21/23 Allergies Allergy/AdvReac Type Severity Reaction Status Date / Time nabumetone [From RELAFEN] Allergy Unknown UNKNOWN Verified 02/14/24 16:28 clonidine Allergy Hives Verified 02/14/24 16:28 lidocaine [From LidoPatch] AdvReac Rash Verified 02/14/24 16:28 menthol [From LidoPatch] AdvReac Rash Verified 02/14/24 16:28 Review of Systems Constitutional: Constitutional: Reports no additional constitutional complaints, Denies chills, Denies fever(s) and Denies night sweats Eyes: Eyes: Reports no additional eye complaints, Denies blurry vision, Denies change in vision, Denies diplopia, Denies eye discharge, Denies loss of vision and Denies eye pain ENT: Denies dizziness Comments: left sided facial warmth - now resolved Cardiovascular: Cardiovascular: Reports no additional cardiovascular complaints, Denies chest pain, Denies lightheadedness, Denies Loss of Consciousness and Denies dyspnea Respiratory: Respiratory: Reports no additional respiratory complaints and Denies dyspnea Gastrointestinal: Gastrointestinal: Reports no additional gastrointestinal complaints, Denies abdominal pain, Denies melena, Denies hematochezia, Denies change in bowel habits, Denies change in stool character and Reports nausea (now resolved) Genitourinary: Genitourinary: Reports no additional male genitourinary complaints, Denies hematuria, Denies oliguria, Denies difficulty urinating, Denies dysuria, Denies urinary frequency, Denies urinary hesitancy, Denies urinary incontinence and Denies urinary urgency Musculoskeletal: Musculoskeletal: Reports no additional musculoskeletal complaints, Denies numbness and Denies tingling Neurologic: Denies dizziness, Denies loss of vision, Denies numbness and Denies tingling Psychiatric: Psychiatric: Reports no additional psychiatric complaints Endocrine: Endocrine: Reports no additional endocrine complaints Hematologic/Lymphatic: Hematologic/Lymphatic: Reports no additional hematologic/lymphatic complaints Allergic/Immunologic: Allergic/Immunologic: Reports no additional allergic/immunologic complaints PMFSH Past Medical History Attestation statement: The following information was validated with the patient. Source: old records reviewed and nursing notes reviewed Social History Social History Smoked in Last 30 Days: No Use of substances other than those prescribed or required for medical reasons: No Advance Directives: No Advance Directives Information Provided: No Do you have a plan to hurt others: No Plan Physical Exam ED Vital Signs: Vital Signs - 24 hr 02/14/24 16:24 Temperature 98.7 F Pulse Rate 64 Respiratory Rate 16 Blood Pressure 131/82 Pulse Oximetry 98 Oxygen Delivery Method Room Air BMI result Body Mass Index 31.7 Const General: cooperative, no acute distress, alert and awake Nutritional Appearance: well nourished Orientation/consciousness: patient oriented x3 Limitations: no limitations HENMT Head: Yes normal to inspection and Yes atraumatic Ears: hearing grossly normal bilaterally and external ears normal General nose exam: Normal external nose present, no nasal discharge noted and no epistaxis Face and sinus: Yes normal facial exam, No abrasion and No laceration Mouth: Normal oral and palatal mucosa present, no drooling and no muffled voice Eyes General: appearance normal, both eyes and all related structures Periorbital: periorbital findings normal Eyelids: Yes eyelids normal Conjunctivae: conjunctivae normal Pupils: Equal, round and reactive pupils present EOM: EOMs intact bilaterally Neck Neck: Yes normal visual inspection, Yes full ROM and Yes no lymphadenopathy Chest Chest palpation & inspection: normal inspection of the chest Resp Effort & Inspection: normal respiratory effort and able to speak in complete sentences GI Inspection: Yes normal to inspection Neuro General: patient oriented x3 and moves all extremities Cranial nerves: Yes Equal, round and reactive pupils present Cognition (Neuro): normal cognition Motor exam (neuro): 5/5 motor strength present throughout Sensory Exam: Normal double simultaneous stimulation for sensation Coordination: [id number] test normal Extrem General: Yes normal to inspection, Yes full ROM and Yes capillary refill normal Psych Appearance: grossly normal Mental Status: mental status grossly normal Affect: normal affect Attitude: cooperative Thought process: Normal thought process present Thought content: Normal thought content present Insight: Good insight present (Psych) NIH Stroke Scale Internal: Initial- Upon Arrival Time: 16:18 Level of Consciousness: Alert Level of Consciousness Questions: Answers both questions correctly Level of Consciousness Commands: Performs both tasks correctly Best Gaze: Normal Visual: No visual loss Facial Palsy: Normal Motor Arm (Right): No drift Motor Arm (Left): No drift Motor Leg (Right): No drift Motor Leg (Left): No drift Limb Ataxia: Absent Sensory: Normal Best Language: No aphasia Dysarthia: Normal Extinction and Inattention: No abnormality Score: 0 Medical Decision Making Medical Decision Making MDM Narrative: Patient is a 53 year old assigned male at with a history of CVA, HTN, and shingles presenting to the emergency department today with left sided facial hotness. Patient states that earlier today he began to have left sided facial warmth, and nausea. Patient states that all of those symptoms have now resolved. Patient's physical exam was unremarkable. Patient's blood work was unremarkable. Patient's urine showed no acute process. Patient's EKG was unremarkable. Patient's head CT showed no acute process. I explained my physical exam findings as well as all test results to the patient. I answered all questions asked by the patient. I stressed the importance of the patient taking his medication as prescribed. I stressed the importance of the patient following up with his primary care provider and his neurologist. I stressed the importance of the patient returning to the emergency department immediately if his symptoms were to return or if he were to develop any dizziness, shortness of breath, difficulty breathing, chest pain, blurry vision, loss of vision, nausea, vomiting, abdominal pain, fever, chills, back pain, or any other complaints. Patient verbalized agreement and understanding with this treatment plan and discharge. Differential Diagnosis Differential Diagnoses: The differential diagnosis associated with the presentation includes CVA TIA Trigeminal neuralgia Shingles Paresthesias Hot flash Admission/Observation Consideration of admission/observation: Escalation of care including admission/observation considered Patient would have been admitted to the hospital had his work up had any findings where hospital admission was appropriate and his clinical presentation warranted hospital admission. Lab Data MDM Lab Attestation statement: I reviewed the patient's lab results. My interpretation of these studies and their corresponding values is that they are grossly normal. 02/14/24 16:55 02/14/24 16:55 Labs: Lab Results 02/14/24 Range/Units 16:55 WBC 4.7 L (4.8-10.8) X10*3/uL RBC 4.72 (4.60-5.80) X10*6/uL Hgb 13.8 L (14.0-18.0) g/dl Hct 39.3 L (42.0-52.0) % MCV 83.3 (80.0-98.0) fL MCH 29.2 (27.0-33.0) pg MCHC 35.1 (31.0-36.0) g/dl RDW 13.4 (11.0-16.0) % Plt Count 119 L D (160-400) X10*3/uL MPV 9.6 (9.4-12.4) fL Immature Gran % (Auto) 0.4 (0.0-0.4) % Neut % (Auto) 64.3 (45-73) % Lymph % (Auto) 17.2 L (20-40) % Blount % (Auto) 6.4 (2-11) % Eos % (Auto) 11.1 H (0-4) % Baso % (Auto) 0.6 (0-2) % Lymph # (Auto) 0.8 L (1.2-4.9) X10*3/uL Blount # (Auto) 0.3 (0.1-1.2) X10*3/uL Eos # (Auto) 0.5 H (0.0-0.4) X10*3/uL Baso # (Auto) 0.0 (0.0-0.2) X10*3/uL Abs Immat Gran (auto) 0.02 (0.00-0.03) X10*3/uL Absolute Neuts (auto) 3.0 (2.0-8.3) x10*3/uL Absolute Nucleated RBC 0.000 (0.0-0.012) X10*3/uL Nucleated RBC % (auto) 0.0 (0.0-0.2) /100WBC Sodium 144 (135-145) mmol/L Potassium 4.0 (3.3-5.1) mmol/L Chloride 105 (96-108) mmol/L Carbon Dioxide 29 (22-29) mmol/L Anion Gap 14 (12-20) BUN 13 (9-16) mg/dL Creatinine 0.92 (0.5-1.4) mg/dL Estim Creat Clear Calc 116.1 Estimated GFR > 60 Random Glucose 88 (60-115) mg/dL Calcium 9.6 D (8.4-10.2) mg/dL Magnesium 2.1 (1.6-2.6) mg/dL Total Bilirubin 0.5 (0.0-1.0) mg/dL AST 20 (5-37) U/L ALT 25 (0-40) U/L Alkaline Phosphatase 65 (39-117) U/L Troponin I High Sens < 2.7 (<3.5-35.0) ng/L Total Protein 6.4 L (6.5-8.0) g/dL Albumin 4.6 (3.5-5.0) g/dL Urine Color Yellow Urine Appearance Clear Urine pH 6.5 (5.0-9.0) Ur Specific [place] <= 1.005 (1.005-1.025) Urine Protein Negative (Neg-Trace) mg/dL Urine Glucose (UA) Negative (Negative) mg/dL Urine Ketones Negative (Negative) mg/dL Urine Blood Negative (Negative) Urine Nitrite Negative (Negative) Ur Leukocyte Esterase Negative (Negative) Influenza Type A (PCR) NEGATIVE (Negative) Influenza Type B (PCR) NEGATIVE (Negative) RSV RNA Qual (PCR) NEGATIVE (Negative) SARS-CoV-2 RNA (RT-PCR) NEGATIVE (Negative) Independent Interpretation I performed an independent interpretation of an: EKG and CT Scan Interpretation: My interpretation is in agreement with the radiologist's impression of these imaging studies. EXAMINATION: CT HEAD WITHOUT CONTRAST CLINICAL INFORMATION: Left side facial droop. Headache. Hypertension. COMPARISON: CT head dated 11/04/2020. TECHNIQUE: Contiguous axial imaging was performed from the skull base to vertex without intravenous administration of contrast. This CT examination was performed using dose optimization techniques as appropriate, variously including the following: *Automated exposure control *Adjustment of mA and/or kV according to patient size (this includes techniques or standardized protocols for targeted exams where dose is matched to indication/reason for exam; i.e. extremities or head) *Use of iterative reconstruction technique DLP: 739 mGy-cm FINDINGS: There is no acute intracranial hemorrhage. There is no evidence of acute/subacute cerebral or cerebellar infarction. There is a chronic area of encephalomalacia within the left parieto-occipital region. There is no midline shift or mass effect. There is no extra-axial fluid collection. Ventricular size is normal. The orbits are symmetric and within normal limits. There is trace mucosal thickening within the right maxillary sinus. Remaining visualized paranasal sinuses are well aerated. Mastoid air cells are clear. CT/CT head/brain wo IV con IMPRESSION: No acute intracranial pathology. There is a chronic infarct within the left parieto-occipital region. Dictated By: Kendell Arroyo Jr DO Signed By: Electronically signed by Kendell Arroyo Jr, DO 02/14/24 1834 Vent. Rate: 053 BPM Atrial Rate: 053 BPM P-R Int: 150 ms QRS Dur: 110 ms QT Int: 436 ms P-R-T Axes: 041 -15 022 degrees QTc Int: 409 ms Sinus bradycardia Incomplete right bundle branch block Borderline ECG When compared with ECG of 20-JUN-2023 19:40, Incomplete right bundle branch block is now Present Nonspecific T wave abnormality now evident in Anterior leads DD/ 1639 Radiology Impression Discussion of test interpretation with radiology: I have reviewed the radiologist's reading. Independent Historian Clinical information obtained from an independent historian. History obtained from or confirmed by: EMS (EMS provided additional history and confirmed the history provided by the patient) Chronic Conditions Patient?s care impacted by: Hypertension Critical Care Time Critical Care Time Critical Care Time: Yes Total Critical Care Time: 68 Attestation: I spent 68 minutes of Critical Care Time with this patient. This does not include time spent on separately reported billable procedures. Discharge Plan Discharge Clinical Impression: Hot flash in male, Hypertension Patient Disposition: Home, Self-Care Instructions: Chronic Hypertension (DC) Additional Instructions: Your CT scan showed the previously known infarct, but nothing new. Your labs are reassuring. Your blood pressure has been normal while in the department. Follow up with your primary care provider. Return to the emergency department immediately if your symptoms worsen or if you develop any dizziness, shortness of breath, difficulty breathing, chest pain, blurry vision, loss of vision, nausea, vomiting, abdominal pain, fever, chills, back pain, or any other complaints. Prescriptions: No Action amoxicillin 875 mg tablet 875 mg PO BID 7 Days Qty: 14 0RF prednisone 20 mg tablet 40 mg PO DAILY 5 Days Qty: 10 0RF fluticasone propionate [Flonase Allergy Relief] 50 mcg/actuation spray,suspension 2 spray intranasal DAILY Qty: 16 0RF Rx Instructions: administer into each nostril levofloxacin 500 mg tablet 500 mg PO DAILY 5 Days Qty: 5 0RF ibuprofen 600 mg tablet 600 mg PO Q6H PRN (Reason: pain) Qty: 30 0RF benzonatate 200 mg capsule 200 mg PO BID PRN (Reason: cough) Qty: 14 0RF Referrals: [facility] [place] [facility]] (Call to establish and follow up with a primary care provider. If you already have a primary care provider, please follow up with them.) [facility] Group] [facility] [[facility]] Stand Alone Forms: Work/School Release Interventions: ED Discharge Assessment Last Done: 02/14/24 19:20 Discharge Date/Time: 02/14/24 19:22 Print Language: [place] Citizen
[2024-02-14 16:24] VITALS: BP 131/82; BP 134/80; PULSE 64; PULSE 70; RESP 16; TEMP 37.1; O2SAT 98; BMI 31.7
[2024-02-14 17:00] LABS: MANUAL DIFF FLAG NO
[2024-02-14 17:10] LABS: Basophils Percent Auto 0.6 % (0-2); Eosinophils Absolute Auto 0.5 X10*3/uL (0.0-0.4); Eosinophils Percent Auto 11.1 % (0-4); Hematocrit 39.3 % (42.0-52.0); Hemoglobin 13.8 g/dl (14.0-18.0); Imm Gran Abs Auto 0.02 X10*3/uL (0.00-0.03); Imm Gran Pct Auto 0.4 % (0.0-0.4); Lymphocytes Absolute Auto 0.8 X10*3/uL (1.2-4.9); Lymphocytes Percent Auto 17.2 % (20-40); Mean Corpuscular HGB Conc 35.1 g/dl (31.0-36.0); Mean Corpuscular Hemoglobin 29.2 pg (27.0-33.0); Mean Corpuscular Volume 83.3 fL (80.0-98.0); Mean Platelet Volume 9.6 fL (9.4-12.4); Monocytes Absolute Auto 0.3 X10*3/uL (0.1-1.2); Monocytes Percent Auto 6.4 % (2-11); Neutrophils Percent Auto 64.3 % (45-73); Platelet Count 119 X10*3/uL (160-400); Red Blood Count 4.72 X10*6/uL (4.60-5.80); Red Cell Distribution Width 13.4 % (11.0-16.0); White Blood Count 4.7 X10*3/uL (4.8-10.8)
[2024-02-14 17:12] LABS: Appearance Urine Clear; Color Urine Yellow; Glucose Urine UA Negative (Negative); Leukocyte Esterase Urine Negative (Negative); Nitrite Urine Negative (Negative); PH 6.5 (5.0-9.0); Specific Gravity - Urine <= 1.005 (1.005-1.025); Urine Blood Negative (Negative); Urine Ketones Negative (Negative); Urine Protein Negative (Neg-Trace)
[2024-02-14 17:26] LABS: Alanine Aminotransferase 25 U/L (0-40); Albumin Level 4.6 g/dL (3.5-5.0); Alkaline Phosphatase 65 U/L (39-117); Anion Gap 14 (12-20); Aspartate Amino Transferase 20 U/L (5-37); Bilirubin Total 0.5 mg/dL (0.0-1.0); Blood Urea Nitrogen 13 mg/dL (9-16); Calcium 9.6 mg/dL (8.4-10.2); Carbon Dioxide 29 mmol/L (22-29); Chloride 105 mmol/L (96-108); Creatinine Clr Calc Pharmacy 116.1; Estimated Glomerular Filt Rate > 60; Glucose Random 88 mg/dL (60-115); Magnesium 2.1 mg/dL (1.6-2.6); Sodium 144 mmol/L (135-145); Total Protein 6.4 g/dL (6.5-8.0)
[2024-02-14 17:37] LABS: Influenza A PCR NEGATIVE (Negative); Influenza B PCR NEGATIVE (Negative); Resp Syncy Virus RNA Qual PCR NEGATIVE (Negative); SARS COV2 PCR INHOUSE NEGATIVE (Negative); Troponin-I High Sensitivity < 2.7 ng/L (<3.5-35.0)
[2024-02-14 18:10] VITALS: BP 127/84; PULSE 63; RESP 18; TEMP 36.9; O2SAT 99
[2024-02-14 19:20] VITALS: BP 127/84; PULSE 63; RESP 18; TEMP 37; O2SAT 99
== END 2024-02-14 19:22 | disposition home or self-care (01) ==
PROVIDERS: Physician Assistant Medical; Emergency Provider Emergency Medicine Emergency Medical Services
DX: R23.2 Flushing (principal); I10 Essential (primary) hypertension; Z86.73 Personal history of transient ischemic attack (TIA), and cerebral infarction without residual deficits; Z03.818 Encounter for observation for suspected exposure to other biological agents ruled out
CPT/HCPCS: 0241U; 70450; 80053; 81003; 83735; 84484; 85025; 93005; 99284

== ENCOUNTER → 2024-02-14 16:18 | Outpatient (BNV) | payer OTHER, SELFPAY | PROVIDERS: Emergency Provider Emergency Medicine Emergency Medical Services; Visit Provider Internal Medicine | DX: R00.1 Bradycardia, unspecified (principal) | CPT/HCPCS: 93010 ==